=== PATIENT | male | born 1970 | race Caucasian/White ===

== ENCOUNTER 2017-01-07 03:58 | Emergency (ER) | payer BC, OTHER ==
[2017-01-07] MEDS ORDERED: Sodium Chloride 0.9% 10 ML Syringe FLUSH PRN (04:23)
[2017-01-07] MEDS ORDERED: Ondansetron 4 MG/2 ML SDV IVPUSH ONE (04:23)
[2017-01-07] MEDS ORDERED: Sodium Chloride 0.9% 2.5 ML Syringe FLUSH PRN (04:23)
[2017-01-07] MEDS ORDERED: Pantoprazole 40 MG in Sodium Chloride 0.9% 10 ML IVPUSH ONE (04:23)
[2017-01-07] MEDS ORDERED: Sodium Chloride 0.9% 1,000 ML IV ONE (04:23)
[2017-01-07] MEDS ORDERED: HYDROmorphone 2 MG/ML Syringe IVPUSH ONE ×2 (04:23→05:16)
--- NOTE | 2017-01-07 04:30 | EDM.PDOC ---
ED HPI GENERAL MEDICAL PROBLEM - General Chief Complaint: Gastrointestinal Problem Stated Complaint: POSSIBLE FOOD POISONING Time Seen by Provider: 01/07/17 04:12 - History of Present Illness INITIAL COMMENTS - FREE TEXT/NARRATIVE: HISTORY AND PHYSICAL: History of present illness: Patient is a 46 y/o male who denies any pre-existing medical problems or GI issues who presents with sudden onset of right mid abdominal pain that started approximately 30-40 minutes ago. The patient says he had a normal day yesterday without any systemic issues and he ate normally. He has no history of food intolerance or GI disturbances. He has been having normal bowel movements. He ate a tamale at approximately 9 PM and he woke early this morning with the pain which was sudden in onset and he had one episode of vomiting. He does not currently feel very nauseated and he says the pain is localized to the right bellybutton area and he has some mid back pain. He does not take a large amount of Motrin or Tylenol products and says he never has heartburn or indigestion. Patient denies any diarrhea and did not take anything at home for the pain. The patient denies any dysuria frequency or urgency and has no specific flank pain. Earlier today he had no fever chills cough chest pain shortness of breath or upper respiratory symptoms. Patient has no history of endoscopy or colonoscopy in the past. Patient denies any dizziness but does feel generalized weakness and some lightheadedness but he did not pass out or black out. Review of systems: As per history of present illness and below otherwise all systems reviewed and negative. Past medical history: As per history of present illness and as reviewed below otherwise noncontributory. Surgical history: As per history of present illness and as reviewed below otherwise noncontributory. Social history: No reported history of drug or alcohol abuse. Family history: As per history of present illness and as reviewed below otherwise noncontributory. Physical exam: Gen.: Well-developed well-nourished man who is pale cool and slightly diaphoretic on my evaluation. Vital signs been reviewed by me. He ambulated into the ED but has been writhing and moaning asking for help and pain medication since arrival. He appears to be very uncomfortable but is difficult to redirect him. HEENT: Atraumatic, normocephalic, pupils reactive, negative for conjunctival pallor or scleral icterus, mucous membranes tacky, throat clear, neck supple, nontender, trachea midline. Lungs: Clear to auscultation, breath sounds equal bilaterally, chest nontender. No worker breathing or sensory muscle use Heart: S1S2, regular rate and rhythm no overt murmurs Abdomen: Soft, nondistended, sounds are very hypoactive. The patient has tenderness just to the right of the umbilicus and slightly above is discrete point tenderness and some right upper and right lower abdominal tenderness. There is no left-sided tenderness and there is no rebound or guarding. Negative for masses, pulsatile masses or hepatosplenomegaly. Negative for costovertebral tenderness. Pelvis: Stable nontender. Genitourinary: Deferred. Rectal: Deferred. Extremities: Atraumatic, negative for cords or calf pain. Neurovascular unremarkable. Neuro: Awake, alert, oriented. Cranial nerves II through XII unremarkable. Cerebellum unremarkable. Motor and sensory unremarkable throughout. Exam nonfocal. Diagnostics: CBC CMP amylase lipase lactic acid upright abdominal film flat abdominal film in one view chest x-ray, CT scan of the abdomen and pelvis Therapeutics: IV fluids Dilaudid Protonix Zofran Levaquin Patient and at bedside are aware of all testing results and patient overall looks significantly improved and he says he still has the pain but it is significantly diminished. It is still located to the right of the umbilicus and not anyplace else. He has not had any vomiting since being here. They're aware of the urine results and the need for antibiotics and will give a dose of Levaquin here as well as Levaquin for home. In light of his clinical presentation on arrival and the profound nature of that I've offered him observation admission even though he looks significantly improved. He is declining admission at this time and will prefer to go home. He is aware of the narrowing of the splenic flexure of the colon in the need for colonoscopy follow -up. He does not have a provider here so I will give him information to contact her clinic and follow-up there to review today's care plan as well as set him up for colonoscopy. He is aware of reasons to return and need for hydration and clear liquid diet. Impression: Sudden right sided abdominal pain improved etiology unclear, UTI Definitive disposition and diagnosis as appropriate pending reevaluation and review of above. Right Lower Back Pain Score (Numeric/FACES): 8 - Related Data Allergies Allergy/AdvReac Type Severity Reaction Status Date / Time No Known Allergies Allergy Verified 01/07/17 04:08 Home Meds: Home Meds . [No Known Home Meds] 01/07/17 [History] Past Medical History Musculoskeletal History: Reports: Other (See Below) - Infectious Disease History Infectious Disease History: Reports: Chicken Pox - Past Surgical History Musculoskeletal Surgical History: Reports: Shoulder Surgery, Other (See Below) Other Musculoskeletal Surgeries/Procedures:: Back Surgery Social & Family History - Family History Family Medical History: Noncontributory - Tobacco Use Smoking Status *Q: Never Smoker Second Hand Smoke Exposure: No - Caffeine Use Caffeine Use: Reports: Coffee - Recreational Drug Use Recreational Drug Use: No ED ROS GENERAL - Review of Systems Review Of Systems: ROS reveals no pertinent complaints other than HPI. ED EXAM, GENERAL - Physical Exam Exam: See Below (See dictation) Course - Vital Signs Last Recorded V/S: Last Vital Signs Temp 35.2 C L 01/07/17 05:58 Pulse 58 L 01/07/17 05:58 Resp 14 01/07/17 05:58 BP 144/95 H 01/07/17 05:58 Pulse Ox 92 L 01/07/17 05:58 - Orders/Labs/Meds Orders: Active Orders 24 hr Category Date Time Status Oxygen Therapy, ED [RC] ASDIRECTED Care 01/07/17 04:22 Active Pulse Oximetry [RC] ASDIRECTED Care 01/07/17 04:22 Active Abdomen 2V AP Flat Upright [CR] Stat Exams 01/07/17 04:23 Taken Abdomen Pelvis w Cont [CT] Stat Exams 01/07/17 04:23 Taken Chest 1V Frontal [CR] Stat Exams 01/07/17 04:23 Ordered CULTURE URINE [RM] Stat Lab 01/07/17 06:31 Ordered Levofloxacin/Dextrose 5%-Water [Levaquin in D5W 500 MG/ Med 01/07/17 06:44 Ordered 100 ML] 500 mg Premix Bag 1 bag IV ONETIME Sodium Chloride 0.9% [Saline Flush] Med 01/07/17 04:23 Active 10 ml FLUSH ASDIRECTED PRN Sodium Chloride 0.9% [Saline Flush] Med 01/07/17 04:23 Active 2.5 ml FLUSH ASDIRECTED PRN Saline Lock Insert [OM.PC] Stat Oth 01/07/17 04:22 Ordered Medication Orders Levofloxacin/Dextrose 500 mg/ (Premix) 100 mls @ 100 mls/hr IV ONETIME ONE Stop: 01/07/17 07:43 Sodium Chloride (Saline Flush) 10 ml FLUSH ASDIRECTED PRN PRN Reason: Keep Vein Open Last Admin: 01/07/17 04:30 Dose: 10 ml Sodium Chloride (Saline Flush) 2.5 ml FLUSH ASDIRECTED PRN PRN Reason: Keep Vein Open Last Admin: 01/07/17 04:30 Dose: 2.5 ml Labs: Laboratory Tests 01/07/17 01/07/17 01/07/17 Range/Units 04:15 04:15 04:15 WBC 9.00 (4.0-11.0) K/uL RBC 5.24 (4.50-5.90) M/uL Hgb 16.5 (13.0-17.0) g/dL Hct 44.6 (38.0-50.0) % MCV 85.1 (80.0-98.0) fL MCH 31.5 (27.0-32.0) pg MCHC 37.0 (31.0-37.0) g/dL RDW Std Deviation 39.3 (28.0-62.0) fl RDW Coeff of Nessa 13 (11.0-15.0) % Plt Count 187 (150-400) K/uL MPV 9.20 (7.40-12.00) fL Neut % (Auto) 42.5 L (48.0-80.0) % Lymph % (Auto) 48.9 H (16.0-40.0) % [place] % (Auto) 6.9 (0.0-15.0) % Eos % (Auto) 1.4 (0.0-7.0) % Baso % (Auto) 0.3 (0.0-1.5) % Neut # (Auto) 3.8 (1.4-5.7) K/uL Lymph # (Auto) 4.4 H (0.6-2.4) K/uL [place] # (Auto) 0.6 (0.0-0.8) K/uL Eos # (Auto) 0.1 (0.0-0.7) K/uL Baso # (Auto) 0.0 (0.0-0.1) K/uL Nucleated RBC % 0.0 /100WBC Nucleated RBCs # 0 K/uL INR 0.96 (0.86-1.11) Lactate 2.3 H (0.20-2.00) mmol/L Sodium (136-146) mmol/L Potassium (3.5-5.1) mmol/L Chloride (98-110) mmol/L Carbon Dioxide (21-31) mmol/L BUN (6.0-23.0) mg/dL Creatinine (0.6-1.5) mg/dL Est Cr Clr Drug Dosing mL/min Estimated GFR (MDRD) ml/min Glucose (60-110) mg/dL Calcium (8.8-10.8) mg/dL Total Bilirubin (0.1-1.5) mg/dL AST (5-40) IU/L ALT (8-54) IU/L Alkaline Phosphatase (40-150) Total Protein (6.0-8.0) g/dL Albumin (3.5-5.0) g/dL Globulin (2.0-3.5) g/dL Albumin/Globulin Ratio (1.3-2.8) Amylase (10-90) U/L Lipase (7-80) U/L Urine Color Urine Appearance Urine pH (5.0-8.0) Ur Specific Steger (1.001-1.035) Urine Protein (NEGATIVE) mg/dL Urine Glucose (UA) (NEGATIVE) mg/dL Urine Ketones (NEGATIVE) mg/dL Urine Occult Blood (NEGATIVE) Urine Nitrite (NEGATIVE) Urine Bilirubin (NEGATIVE) Urine Urobilinogen (<2.0) EU/dL Ur Leukocyte Esterase (NEGATIVE) Urine RBC (0-2/HPF) Urine WBC (0-5/HPF) Ur Epithelial Cells (NONE-FEW) Urine Bacteria (NEGATIVE) 01/07/17 01/07/17 Range/Units 04:15 04:25 WBC (4.0-11.0) K/uL RBC (4.50-5.90) M/uL Hgb (13.0-17.0) g/dL Hct (38.0-50.0) % MCV (80.0-98.0) fL MCH (27.0-32.0) pg MCHC (31.0-37.0) g/dL RDW Std Deviation (28.0-62.0) fl RDW Coeff of Nessa (11.0-15.0) % Plt Count (150-400) K/uL MPV (7.40-12.00) fL Neut % (Auto) (48.0-80.0) % Lymph % (Auto) (16.0-40.0) % [place] % (Auto) (0.0-15.0) % Eos % (Auto) (0.0-7.0) % Baso % (Auto) (0.0-1.5) % Neut # (Auto) (1.4-5.7) K/uL Lymph # (Auto) (0.6-2.4) K/uL [place] # (Auto) (0.0-0.8) K/uL Eos # (Auto) (0.0-0.7) K/uL Baso # (Auto) (0.0-0.1) K/uL Nucleated RBC % /100WBC Nucleated RBCs # K/uL INR (0.86-1.11) Lactate (0.20-2.00) mmol/L Sodium 140 (136-146) mmol/L Potassium 3.5 (3.5-5.1) mmol/L Chloride 106 (98-110) mmol/L Carbon Dioxide 21 (21-31) mmol/L BUN 14 (6.0-23.0) mg/dL Creatinine 1.0 (0.6-1.5) mg/dL Est Cr Clr Drug Dosing 104.31 mL/min Estimated GFR (MDRD) > 60.0 ml/min Glucose 132 H (60-110) mg/dL Calcium 10.2 (8.8-10.8) mg/dL Total Bilirubin 0.3 (0.1-1.5) mg/dL AST 25 (5-40) IU/L ALT 26 (8-54) IU/L Alkaline Phosphatase 81 (40-150) Total Protein 7.8 (6.0-8.0) g/dL Albumin 3.9 (3.5-5.0) g/dL Globulin 3.9 H (2.0-3.5) g/dL Albumin/Globulin Ratio 1.0 L (1.3-2.8) Amylase 98 H (10-90) U/L Lipase 51 (7-80) U/L Urine Color YELLOW Urine Appearance SLT CLOUDY Urine pH 6.0 (5.0-8.0) Ur Specific [place] 1.025 (1.001-1.035) Urine Protein NEGATIVE (NEGATIVE) mg/dL Urine Glucose (UA) NEGATIVE (NEGATIVE) mg/dL Urine Ketones NEGATIVE (NEGATIVE) mg/dL Urine Occult Blood TRACE-INTACT (NEGATIVE) Urine Nitrite POSITIVE H (NEGATIVE) Urine Bilirubin NEGATIVE (NEGATIVE) Urine Urobilinogen 0.2 (<2.0) EU/dL Ur Leukocyte Esterase MODERATE (NEGATIVE) Urine RBC 1-2 (0-2/HPF) Urine WBC 30-60 (0-5/HPF) Ur Epithelial Cells RARE (NONE-FEW) Urine Bacteria 2+ H (NEGATIVE) Meds: Medications Generic Name Dose Route Start Last Admin Trade Name Cristian PRN Reason Stop Dose Admin Levofloxacin/Dextrose 500 mg/ 100 mls @ 100 mls/hr 01/07/17 06:44 Premix IV 01/07/17 07:43 ONETIME ONE Sodium Chloride 10 ml 01/07/17 04:23 01/07/17 04:30 Saline Flush FLUSH 10 ml ASDIRECTED PRN Administration Keep Vein Open Sodium Chloride 2.5 ml 01/07/17 04:23 01/07/17 04:30 Saline Flush FLUSH 2.5 ml ASDIRECTED PRN Administration Keep Vein Open Discontinued Medications Generic Name Dose Route Start Last Admin Trade Name Cristian PRN Reason Stop Dose Admin Hydromorphone HCl 1 mg 01/07/17 04:23 01/07/17 04:30 Dilaudid IVPUSH 01/07/17 04:24 1 mg ONETIME ONE Administration Hydromorphone HCl 1 mg 01/07/17 05:16 01/07/17 05:27 Dilaudid IVPUSH 01/07/17 05:17 1 mg ONETIME ONE Administration Pantoprazole Sodium 40 mg/ 10 mls @ 300 mls/hr 01/07/17 04:23 01/07/17 04:32 Sodium Chloride IVPUSH 01/07/17 04:24 300 mls/hr NOW ONE Administration Sodium Chloride 1,000 mls @ 999 mls/hr 01/07/17 04:23 01/07/17 04:25 Normal Saline IV 01/07/17 05:23 999 mls/hr STAT ONE Administration Iopamidol 100 ml 01/07/17 06:16 01/07/17 06:17 Isovue Multipack-370 (76%) IVPUSH 01/07/17 06:17 100 ml ONETIME STA Administration Ondansetron HCl 4 mg 01/07/17 04:23 01/07/17 04:31 Zofran IVPUSH 01/07/17 04:24 4 mg ONETIME ONE Administration Departure - Departure Time of Disposition: 06:47 Disposition: Home, Self-Care 01 Condition: Good Clinical Impression: Abdominal pain UTI (urinary tract infection) Qualifiers: Urinary tract infection type: site unspecified Hematuria presence: without hematuria Qualified Code(s): N39.0 - Urinary tract infection, site not specified - Discharge Information Referrals: PCP,None [Primary Care Provider] - Forms: ED Department Discharge Additional Instructions: The following information is given to patients seen in the emergency department who are being discharged to home. This information is to outline your options for follow-up care. We provide all patients seen in our emergency department with a follow-up referral. The need for follow-up, as well as the timing and circumstances, are variable depending upon the specifics of your emergency department visit. If you don't have a primary care physician on staff, we will provide you with a referral. We always advise you to contact your personal physician following an emergency department visit to inform them of the circumstance of the visit and for follow-up with them and/or the need for any referrals to a consulting specialist. The emergency department will also refer you to a specialist when appropriate. This referral assures that you have the opportunity for followup care with a specialist. All of these measure are taken in an effort to provide you with optimal care, which includes your followup. Under all circumstances we always encourage you to contact your private physician who remains a resource for coordinating your care. When calling for followup care, please make the office aware that this follow-up is from your recent emergency room visit. If for any reason you are refused follow-up, please contact the [facility] emergency department at and ask to speak to the emergency department charge nurse. [facility] Primary care- Internal Medicine and Family [address] [address] Please call the clinic at 8 AM on Monday morning to get an expedited ER follow- up as we discussed. Please discuss with them referral for colonoscopy once the current symptoms of today improved. Please take all medications as prescribed and also pursue a clear liquid/bland diet today. Rest. Return to ER as needed and as discussed. - My Orders Last 24 Hours: My Active Orders 01/07/17 04:22 Oxygen Therapy, ED [RC] ASDIRECTED Pulse Oximetry [RC] ASDIRECTED Saline Lock Insert [OM.PC] Stat 01/07/17 04:23 Abdomen 2V AP Flat Upright [CR] Stat Abdomen Pelvis w Cont [CT] Stat Chest 1V Frontal [CR] Stat Sodium Chloride 0.9% [Saline Flush] 10 ml FLUSH ASDIRECTED PRN Sodium Chloride 0.9% [Saline Flush] 2.5 ml FLUSH ASDIRECTED PRN 01/07/17 06:31 CULTURE URINE [RM] Stat 01/07/17 06:44 Levofloxacin/Dextrose 5%-Water [Levaquin in D5W 500 MG/100 ML] 500 mg Premix Bag 1 bag IV ONETIME - Assessment/Plan Last 24 Hours: My Active Orders 01/07/17 04:22 Oxygen Therapy, ED [RC] ASDIRECTED Pulse Oximetry [RC] ASDIRECTED Saline Lock Insert [OM.PC] Stat 01/07/17 04:23 Abdomen 2V AP Flat Upright [CR] Stat Abdomen Pelvis w Cont [CT] Stat Chest 1V Frontal [CR] Stat Sodium Chloride 0.9% [Saline Flush] 10 ml FLUSH ASDIRECTED PRN Sodium Chloride 0.9% [Saline Flush] 2.5 ml FLUSH ASDIRECTED PRN 01/07/17 06:31 CULTURE URINE [RM] Stat 01/07/17 06:44 Levofloxacin/Dextrose 5%-Water [Levaquin in D5W 500 MG/100 ML] 500 mg Premix Bag 1 bag IV ONETIME
[2017-01-07 04:48] LABS: CHLORIDE,CL 106 mmol/L (98-110); SODIUM,NA 140 mmol/L (136-146)
[2017-01-07] MEDS ORDERED: Iopamidol 755 MG/ML 500 ML Multipack Bottle IVPUSH STA (06:16)
[2017-01-07] MEDS ORDERED: Levofloxacin/Dextrose 5%-Water 500 MG in Premix Bag 1 BAG IV ONE (06:44)
--- NOTE | 2017-01-09 10:52 | CR ---
EXAM DATE: 01/07/17 PATIENT'S AGE: 46 Patient: KENNEDY ENRIQUE Facility: [place], [place] Site . Site : 1970 Study: XRay Chest [id number]/14/2017 5:04:13 AM Ordering Physician: Aixa Warner Final Report: INDICATIONS: Pain. Shortness of breath. TECHNIQUE: Chest 1 AP view. COMPARISON: None FINDINGS: Lungs are suboptimally inflated but grossly clear. No evidence of pneumothorax or pleural effusion. Cardiac and mediastinal contours appear within normal limits. Upper abdomen and osseous structures as image show no acute abnormality. IMPRESSION: No evidence of acute cardiopulmonary disease. Dictated by Jayson Thompson MD @ 01/07/2017 5:15:40 AM Dictated by: Jayson Thompson MD @ 01/07/2017 05:15:48 (Electronic Signature) Report Signed by Proxy. [facility]
--- NOTE | 2017-01-09 10:53 | CR ---
EXAM DATE: 01/07/17 PATIENT'S AGE: 46 Patient: KENNEDY ENRIQUE Facility: [place], [place] Site . Site : 1970 Study: XRay Abdomen [id number]/14/2017 5:04:34 AM Ordering Physician: Aixa Warner Final Report: Indication: Abdominal pain. Technique: Abdomen three views. Comparison: None. Findings: The bowel gas pattern is nonobstructive. No evidence of free intraperitoneal gas. Mild fecal loading of the right colon. Soft tissues elsewhere as imaged are unremarkable. Visualized osseous structures are intact. Impression: No evidence of acute disease. Dictated by Jayson Thompson MD @ 01/07/2017 5:17:42 AM Dictated by: Jayson Thompson MD @ 01/07/2017 05:17:50 (Electronic Signature) Report Signed by Proxy. [facility]
--- NOTE | 2017-01-09 10:53 | CT ---
EXAM DATE: 01/07/17 PATIENT'S AGE: 46 Patient: KENNEDY ENRIQUE Facility: [place], [place] : 1970 Study: CT Abdomen/Pelvis [id number]/14/2017 5:59:03 AM Ordering Physician: NURIA Final Report: INDICATION: Abdominal pain. TECHNIQUE: CT abdomen and pelvis acquired with 100 mL of Isovue 370 IV contrast. COMPARISON: None. FINDINGS: Lower chest: Unremarkable. Liver: Unremarkable. Spleen: Unremarkable. Pancreas: Unremarkable. Gallbladder and bile ducts: Unremarkable. Kidneys: Unremarkable. Adrenal glands: Unremarkable. GI tract: Apparent thickening of the splenic flexure and proximal descending colon, of uncertain significance. Mild colonic diverticulosis without evidence of acute diverticulitis. No bowel obstruction or evidence of acute appendicitis. Scattered borderline mesenteric lymph nodes. No free air or free fluid. Vascular structures: Unremarkable. Pelvic Organs: Mild circumferential bladder wall thickening. A left posterior bladder diverticulum measures 1.2 cm. Bones: Degenerative changes. IMPRESSION: Apparent thickening of the splenic flexure and proximal descending colon, of uncertain significance. Question physiologic collapse versus mild nonspecific colitis. Mild colonic diverticulosis without evidence of acute diverticulitis. Borderline mesenteric lymphadenopathy may be infectious or inflammatory. Circumferential bladder thickening and small bladder diverticulum. Dictated by Jayson Thompson MD @ 01/07/2017 6:28:16 AM Dictated by: Jayson Thompson MD @ 01/07/2017 06:28:48 (Electronic Signature) Report Signed by Proxy. [facility]
== END 2017-01-07 08:30 | disposition home or self-care (01) ==
LOC: MW.ED 03:58
DX: N39.0 Urinary tract infection, site not specified (principal); Z98.890 Other specified postprocedural states
CPT/HCPCS: 71010; 74020; 74177; 80053; 81001; 82150; 83605; 83690; 85025; 85610; 87086; 96365; 96375; 96376; 99284; C9113; J1170; J1956; J2405; J7040; Q9967; 87088; 87186; 99283